=== PATIENT | female | born 1940 | race Caucasian/White ===

== ENCOUNTER → 2020-11-07 | Outpatient (CLI) | payer OTHER | LOC: RAH 11:29 | PROVIDERS: ATTEND Internal Medicine Cardiovascular Disease | DX: Z13.6 Encounter for screening for cardiovascular disorders (principal) | CPT/HCPCS: 75571 ==

== ENCOUNTER 2021-05-31 05:52 | Day surgery (SDC) | payer MEDICARE ==
[2021-05-29 13:12] LABS: BASOPHILS % (AUTO) 0.9 % (0.0-5.0); EOSINOPHILS % (AUTO) 3.4 % (0.0-8.0); HEMATOCRIT 35.7 % (36-48); LYMPHOCYTES % (AUTO) 32.5 % (21.0-51.0); MEAN CORPUSCULAR HEMOGLOBIN 30.1 pg (27.0-33.0); MEAN CORPUSCULAR HGB CONC 32.2 g/dL (32.0-36.0); MEAN CORPUSCULAR VOLUME 93.5 fL (79-99); MONOCYTES % (AUTO) 9.2 % (3.0-13.0); NEUTROPHILS % (AUTO) 53.6 % (40.0-77.0); PLATELET COUNT (AUTO) 162 K/uL (130-400); RED BLOOD CELL COUNT(AUTO) 3.82 MIL/uL (4.00-5.50); RED CELL DISTRIBUTION WIDTH 13.2 % (11.0-15.5); WHITE BLOOD COUNT (AUTO) 7.9 K/uL (4.8-10.8)
[2021-05-29 13:21] LABS: CREATININE 1.2 mg/dL (0.5-1.5)
[2021-05-29 13:24] LABS: INR 1.01 (0.85-1.15)
[2021-05-29 13:26] LABS: PARTIAL THROMBOPLASTIN TIME 28.2 SEC (26.3-35.5)
[2021-05-29 13:36] LABS: APPEARANCE,URINE Clear (CLEAR); BILIRUBIN,URINE Negative (NEGATIVE); COLOR,URINE Yellow (YELLOW); GLUCOSE, URINE (UA) Negative (NEGATIVE); KETONES,URINE Negative (NEGATIVE); LEUKOCYTE ESTERASE ,URINE Moderate (NEGATIVE); NITRATE,URINE Negative (NEGATIVE); OCCULT BLOOD,URINE Negative (NEGATIVE); PROTEIN,URINE Negative (NEGATIVE); UROBILINOGEN,URINE 0.2 mg/dL (0.2-1.0)
[2021-05-29 13:49] LABS: BACTERIA,URINE Moderate /HPF (None Seen); RBC,URINE 0-1 /HPF (0-1); SQUAMOUS EPITHELIAL CELL,UR Rare /HPF (0-2)
[2021-05-30 09:24] VITALS: BP 210/99
[2021-05-31] VITALS (10 sets, daily range): BP systolic 131–169; BP diastolic 55–88
[~2021-05-31] VITALS: Ht 165.1 cm; Wt 67.1 kg
[~2021-05-31 05:52] MED LIST: ASPI-1197 PO; ATOR40TA69 PO; CARV12.511 PO; MULT-1192 PO
[2021-05-31] MEDS ORDERED: 0.9% NACL 500ML IV.SOLN 500 ML IV SCH (06:00)
[2021-05-31] MEDS ORDERED: 0.9%NACL 1000ML 1,000 ML IV ONE (07:15)
[2021-05-31] MEDS ORDERED: SODIUM BICARB 50MEQ 50ML VIAL 50 ML ONE (09:07)
[2021-05-31] MEDS ORDERED: NITROGLYCERIN 2 MG VIAL IV ONE (09:07)
[2021-05-31] MEDS ORDERED: IOHEXOL 350 MG/ML 100ML INFUS..BTL IV ONE (09:07)
[2021-05-31] MEDS ORDERED: HEPARIN 10,000 UNIT/10ML (1,000 UNIT/ML) VIAL ONE (09:07)
[2021-05-31] MEDS ORDERED: LIDOCAINE HCL 400MG/20ML VIAL ONE (09:08)
[2021-05-31] MEDS ORDERED: MIDAZOLAM HCL 1 MG/ML 2ML VIAL ONE (09:08)
[2021-05-31] MEDS ORDERED: MEPERIDINE-PF 25 MG/ML SYG ONE (09:08)
[2021-05-31] MEDS ORDERED: LABETALOL 20MG VIAL IV ONE (09:40)
[2021-05-31] MEDS ORDERED: 0.9%NACL 1000ML 1,000 ML IV SCH (10:30)
== END 2021-05-31 15:10 | disposition home or self-care (01) ==
LOC: DAH 05:52
PROVIDERS: ATTEND Internal Medicine Cardiovascular Disease
DX: I25.119 Atherosclerotic heart disease of native coronary artery with unspecified angina pectoris (principal); I65.23 Occlusion and stenosis of bilateral carotid arteries; I70.1 Atherosclerosis of renal artery; I10 Essential (primary) hypertension; Z82.49 Family history of ischemic heart disease and other diseases of the circulatory system; Z85.6 Personal history of leukemia; Z79.899 Other long term (current) drug therapy
CPT/HCPCS: 36223; 36252; 36415; 71045; 80048; 81001; 85025; 85610; 85730; 87077 ×2; 87088; 87186 ×2; 93005; 93458; A4215; A4216; A4221; A4222; A4223 ×3; A4606; A4663; C1760; C1769; C1894; J1644; J2175; J2250; J3490 ×4; J7030; Q9965 ×2; Q9967; 99156; 99157

== ENCOUNTER 2021-07-25 08:00 | Inpatient (IN) | payer MEDICARE ==
[~2021-07-25] VITALS: Ht 165.1 cm; Wt 68.2 kg
[~2021-07-25 08:00] MED LIST changes: -ATOR40TA69 PO; -CARV12.511 PO
[2021-07-25 09:35] LABS: BASOPHILS % (AUTO) 0.9 % (0.0-5.0); EOSINOPHILS % (AUTO) 1.9 % (0.0-8.0); HEMATOCRIT 36.5 % (36-48); LYMPHOCYTES % (AUTO) 35.1 % (21.0-51.0); MEAN CORPUSCULAR HEMOGLOBIN 29.8 pg (27.0-33.0); MEAN CORPUSCULAR HGB CONC 31.8 g/dL (32.0-36.0); MEAN CORPUSCULAR VOLUME 93.8 fL (79-99); MONOCYTES % (AUTO) 9.3 % (3.0-13.0); NEUTROPHILS % (AUTO) 52.6 % (40.0-77.0); PLATELET COUNT (AUTO) 139 K/uL (130-400); RED BLOOD CELL COUNT(AUTO) 3.89 MIL/uL (4.00-5.50); RED CELL DISTRIBUTION WIDTH 13.9 % (11.0-15.5); WHITE BLOOD COUNT (AUTO) 6.3 K/uL (4.8-10.8)
[2021-07-25 09:43] LABS: CREATININE 1.2 mg/dL (0.5-1.5); POTASSIUM 4.7 mmol/L (3.5-5.1)
[2021-07-25 09:46] LABS: INR 1.01 (0.85-1.15)
[2021-07-25 09:47] LABS: PARTIAL THROMBOPLASTIN TIME 28.8 SEC (26.3-35.5)
[2021-07-25 10:14] LABS: APPEARANCE,URINE CLOUDY (CLEAR); BILIRUBIN,URINE NEGATIVE (NEGATIVE); COLOR,URINE YELLOW (YELLOW); GLUCOSE, URINE (UA) NEGATIVE (NEGATIVE); KETONES,URINE NEGATIVE (NEGATIVE); LEUKOCYTE ESTERASE ,URINE LARGE (NEGATIVE); NITRATE,URINE NEGATIVE (NEGATIVE); OCCULT BLOOD,URINE MODERATE (NEGATIVE); PROTEIN,URINE NEGATIVE (NEGATIVE); UROBILINOGEN,URINE 0.2 mg/dL (0.2-1.0)
[2021-07-25 10:21] LABS: BACTERIA,URINE Many /HPF (None Seen); RBC,URINE 0-1 /HPF (0-1); SQUAMOUS EPITHELIAL CELL,UR Few /HPF (0-2); WBC,URINE 26-50 /HPF (0-1)
[2021-07-26 13:30] VITALS: BP 159/77
[2021-07-26] MEDS ORDERED: CARV12.511 PO (14:36)
[2021-07-26] MEDS ORDERED: ATOR10 PO (14:36)
[2021-07-27] VITALS (38 sets, daily range): BP systolic 94–164; BP diastolic 42–79
[2021-07-27] MEDS ORDERED: LACTATED RINGERS 1000ML 0 ML IV ONE (05:35)
[2021-07-27] MEDS ORDERED: 0.9%NACL 1000ML 1,000 ML IV ONE (06:28)
[2021-07-27] MEDS ORDERED: NITROGLYCERIN 50MG VIAL IV ONE (06:54)
[2021-07-27] MEDS ORDERED: HEPARIN 10,000 UNIT/10ML (1,000 UNIT/ML) VIAL ONE (06:54)
[2021-07-27] MEDS ORDERED: IODIXANOL 320 MG/ML 100 ML VIAL ONE (06:54)
[2021-07-27] MEDS ORDERED: LEVOFLOXACIN 500 MG/D5W 100 ML 100 ML ONE (06:58)
[2021-07-27] MEDS ORDERED: ONDANSETRON 4MG INJ ONE (07:04)
[2021-07-27] MEDS ORDERED: DEXAMETHASONE SOD PHOSPHATE 10MG/ML 1ML VIAL ONE (07:04)
[2021-07-27] MEDS ORDERED: GLYCOPYRROLATE 1 MG/5 ML SYRINGE ONE (07:04)
[2021-07-27] MEDS ORDERED: LIDOCAINE PF 100MG/5ML (2%) SYRINGE 5ML ONE (07:04)
[2021-07-27] MEDS ORDERED: SUCCINYLCHOLINE 200MG/10ML SYR ONE (07:04)
[2021-07-27] MEDS ORDERED: FENTANYL CITRATE PF 50 MCG/1 ML 2ML VIAL ONE (07:05)
[2021-07-27] MEDS ORDERED: ROCURONIUM 10MG/1ML SYR 10 MG/ML ML ONE (07:05)
[2021-07-27] MEDS ORDERED: PROPOFOL 10 MG/ML 20ML VIAL IV ONE ×2 (07:05→07:09)
[2021-07-27] MEDS ORDERED: CEFAZOLIN SODIUM 1 GM VIAL ONE ×3 (07:05→08:05)
[2021-07-27] MEDS ORDERED: NEOSTIGMINE 5MG/5ML SYR IV ONE (07:05)
[2021-07-27] MEDS ORDERED: CLOPIDOGREL 300MG TAB ONE (07:15)
[2021-07-27] MEDS ORDERED: EPHEDRINE SULFATE 50 MG/ML AMPULE ONE (07:49)
[2021-07-27] MEDS ORDERED: 0.9%NACL 1000ML 1,000 ML IV SCH ×2 (08:00→09:30)
[2021-07-27] MEDS ORDERED: ROCURONIUM BROMIDE 10MG/1ML 5ML VL ONE (08:03)
[2021-07-27] MEDS ORDERED: OCTYL 2-CYANOACRYLATE 1 EACH TP ONE (08:56)
[2021-07-27] MEDS ORDERED: ACETAMINOPHEN WITH CODEINE 1 TAB TAB PO PRN ×2 (09:30)
[2021-07-27] MEDS ORDERED: NITROGLYCERIN 50MG/D5W 250ML 1 BOT IV PRN (09:30)
[2021-07-27] MEDS ORDERED: TEMAZEPAM 30 MG CAP PO PRN (09:30)
[2021-07-27] MEDS ORDERED: ONDANSETRON 4MG INJ IVP PRN (09:30)
[2021-07-27] MEDS: MULTIVITAMIN TABLET PO SCH (10:01)
[2021-07-27] MEDS ORDERED: ASPIRIN 81MG CHEW TAB PO SCH (10:01)
[2021-07-27] MEDS ORDERED: CLOPIDOGREL 300MG TAB PO SCH (10:30)
[2021-07-27] MEDS ORDERED: BENZOCAINE/MENTH/CETYLPYRD CL 1 EACH LOZENGE MM PRN (15:30)
[2021-07-27] MEDS: NOREPINEPHRIN 4MG/NS 250ML 250 ML IV SCH (18:14)
[2021-07-27] MEDS: ATORVASTATIN 10 MG TABLET PO SCH (20:12)
[2021-07-27] MEDS: CARVEDILOL 12.5 MG TABLET PO SCH (20:12)
[2021-07-28] VITALS (72 sets, daily range): BP systolic 115–166; BP diastolic 27–108
[2021-07-28 04:16] LABS: HEMATOCRIT 27.9 % (36-48); MEAN CORPUSCULAR HEMOGLOBIN 29.8 pg (27.0-33.0); MEAN CORPUSCULAR HGB CONC 31.5 g/dL (32.0-36.0); MEAN CORPUSCULAR VOLUME 94.6 fL (79-99); RED BLOOD CELL COUNT(AUTO) 2.95 MIL/uL (4.00-5.50)
[2021-07-28 04:35] LABS: CREATININE 1.4 mg/dL (0.5-1.5); POTASSIUM 4.5 mmol/L (3.5-5.1)
[2021-07-28] MEDS ORDERED: LEVOFLOXACIN 500 MG/D5W 100 ML 100 ML ONE (05:11)
[2021-07-28] MEDS ORDERED: LEVOFLOXACIN 500 MG/D5W 100 ML 100 ML IV SCH (07:00)
[2021-07-28] MEDS: CARVEDILOL 12.5 MG TABLET PO SCH (08:25)
[2021-07-28] MEDS: MULTIVITAMIN TABLET PO SCH (08:35)
[2021-07-28] MEDS: ASPIRIN 81MG CHEW TAB PO SCH (08:35)
[2021-07-28] MEDS: CLOPIDOGREL 75MG TAB PO SCH (08:36)
[2021-07-28] MEDS: NOREPINEPHRIN 4MG/NS 250ML 250 ML IV SCH (11:02)
[2021-07-28 16:01] LABS: HEMATOCRIT 23.5 % (36-48)
[2021-07-28 20:56] LABS: HEMATOCRIT 25.6 % (36-48)
[2021-07-28] MEDS: ATORVASTATIN 10 MG TABLET PO SCH (21:24)
[2021-07-29] VITALS (30 sets, daily range): BP systolic 113–159; BP diastolic 53–91
[2021-07-29 03:41] LABS: BASOPHILS % (AUTO) 0.1 % (0.0-5.0); EOSINOPHILS % (AUTO) 1.3 % (0.0-8.0); HEMATOCRIT 22.4 % (36-48); LYMPHOCYTES % (AUTO) 27.8 % (21.0-51.0); MEAN CORPUSCULAR HGB CONC 32.1 g/dL (32.0-36.0); MEAN CORPUSCULAR VOLUME 93.3 fL (79-99); NEUTROPHILS % (AUTO) 58.5 % (40.0-77.0); PLATELET COUNT (AUTO) 116 K/uL (130-400); RED CELL DISTRIBUTION WIDTH 14.7 % (11.0-15.5); WHITE BLOOD COUNT (AUTO) 11.8 K/uL (4.8-10.8)
[2021-07-29 07:59] LABS: CREATININE 1.3 mg/dL (0.5-1.5); POTASSIUM 4.1 mmol/L (3.5-5.1)
[2021-07-29] MEDS: LEVOFLOXACIN 250 MG/D5W 50ML 50 ML IVPB SCH (08:00)
[2021-07-29] MEDS: ASPIRIN 81MG CHEW TAB PO SCH (08:23)
[2021-07-29] MEDS: MULTIVITAMIN TABLET PO SCH (08:24)
[2021-07-29] MEDS: CLOPIDOGREL 75MG TAB PO SCH (08:24)
[2021-07-29 12:32] LABS: HEMATOCRIT 23.7 % (36-48)
[2021-07-29] MEDS: ATORVASTATIN 10 MG TABLET PO SCH (20:23)
[2021-07-30] VITALS (13 sets, daily range): BP systolic 135–168; BP diastolic 48–95
[2021-07-30 03:38] LABS: HEMATOCRIT 23.1 % (36-48); MEAN CORPUSCULAR HEMOGLOBIN 29.8 pg (27.0-33.0); MEAN CORPUSCULAR HGB CONC 31.6 g/dL (32.0-36.0); MEAN CORPUSCULAR VOLUME 94.3 fL (79-99); RED BLOOD CELL COUNT(AUTO) 2.45 MIL/uL (4.00-5.50); RED CELL DISTRIBUTION WIDTH 14.7 % (11.0-15.5); WHITE BLOOD COUNT (AUTO) 11.9 K/uL (4.8-10.8)
[2021-07-30] MEDS: MULTIVITAMIN TABLET PO SCH (08:13)
[2021-07-30] MEDS: ASPIRIN 81MG CHEW TAB PO SCH (08:13)
[2021-07-30] MEDS: LEVOFLOXACIN 250 MG/D5W 50ML 50 ML IVPB SCH (08:13)
[2021-07-30] MEDS: CLOPIDOGREL 75MG TAB PO SCH (08:30)
[2021-07-30] MEDS ORDERED: METOPROLOL TARTRATE 50 MG TAB PO SCH (10:30)
[2021-07-30] MEDS: PANTOPRAZOLE 40 MG TAB DR PO SCH (10:39)
[2021-07-30] MEDS: METOPROLOL SUCCINATE 50 MG TAB.SR.24H PO SCH ×2 (11:40→20:48)
[2021-07-30 12:23] LABS: APPEARANCE,URINE Clear (CLEAR); BILIRUBIN,URINE Negative (NEGATIVE); COLOR,URINE Yellow (YELLOW); GLUCOSE, URINE (UA) Negative (NEGATIVE); KETONES,URINE Trace mg/dL (NEGATIVE); LEUKOCYTE ESTERASE ,URINE Moderate (NEGATIVE); NITRATE,URINE Negative (NEGATIVE); OCCULT BLOOD,URINE Negative (NEGATIVE); PROTEIN,URINE Trace mg/dL (NEGATIVE)
[2021-07-30 13:04] LABS: BACTERIA,URINE Rare /HPF (None Seen); RBC,URINE 0-1 /HPF (0-1); SQUAMOUS EPITHELIAL CELL,UR Few /HPF (0-2)
[2021-07-30] MEDS: ATORVASTATIN 10 MG TABLET PO SCH (20:47)
[2021-07-31] VITALS (7 sets, daily range): BP systolic 117–161; BP diastolic 47–80
[2021-07-31 03:59] LABS: HEMATOCRIT 26.7 % (36-48)
[2021-07-31] MEDS ORDERED: DILTIAZEM 50MG VIAL IV ONE (05:38)
[2021-07-31] MEDS ORDERED: DILTIAZEM 25MG INJ IVP SCH ×2 (06:00→08:00)
[2021-07-31] MEDS: PANTOPRAZOLE 40 MG TAB DR PO SCH ×2 (06:20→08:42)
[2021-07-31] MEDS: METOPROLOL SUCCINATE 50 MG TAB.SR.24H PO SCH ×2 (06:20→20:31)
[2021-07-31 06:41] LABS: BASOPHILS % (AUTO) 0.4 % (0.0-5.0); EOSINOPHILS % (AUTO) 0.1 % (0.0-8.0); LYMPHOCYTES % (AUTO) 31.7 % (21.0-51.0); MEAN CORPUSCULAR HEMOGLOBIN 29.4 pg (27.0-33.0); MEAN CORPUSCULAR HGB CONC 32.1 g/dL (32.0-36.0); MEAN CORPUSCULAR VOLUME 91.6 fL (79-99); MONOCYTES % (AUTO) 11.8 % (3.0-13.0); NEUTROPHILS % (AUTO) 55.7 % (40.0-77.0); PLATELET COUNT (AUTO) 123 K/uL (130-400); RED BLOOD CELL COUNT(AUTO) 2.96 MIL/uL (4.00-5.50); WHITE BLOOD COUNT (AUTO) 9.3 K/uL (4.8-10.8)
[2021-07-31] MEDS ORDERED: METOPROLOL TARTRATE 50 MG TAB PO SCH (08:00)
[2021-07-31 08:26] LABS: ALBUMIN 3.2 g/dL (3.5-5.0); MAGNESIUM 1.9 mg/dL (1.80-2.40); POTASSIUM 4.2 mmol/L (3.5-5.1); TOTAL PROTEIN, SERUM 6.3 g/dL (6.0-8.3)
[2021-07-31] MEDS: MULTIVITAMIN TABLET PO SCH (08:42)
[2021-07-31] MEDS: CLOPIDOGREL 75MG TAB PO SCH (08:43)
[2021-07-31] MEDS: DILTIAZEM 125 MG/25 ML INJ 125 MG in 0.9%NACL 100ML 100 ML IV SCH ×3 (09:09→20:38)
[2021-07-31] MEDS: LEVOFLOXACIN 250 MG/D5W 50ML 50 ML IVPB SCH (09:30)
[2021-07-31] MEDS: APIXABAN 5 MG TABLET PO SCH ×2 (10:40→20:31)
[2021-07-31] MEDS: FERROUS SULFATE 325 MG TABLET.DR PO SCH ×2 (11:32→17:08)
[2021-07-31] MEDS: ATORVASTATIN 10 MG TABLET PO SCH (20:32)
[2021-08-01 03:43] VITALS: BP 145/81
[2021-08-01 05:14] LABS: HEMATOCRIT 27.5 % (36-48); MEAN CORPUSCULAR HEMOGLOBIN 29.5 pg (27.0-33.0); MEAN CORPUSCULAR HGB CONC 32.4 g/dL (32.0-36.0); MEAN CORPUSCULAR VOLUME 91.1 fL (79-99); RED BLOOD CELL COUNT(AUTO) 3.02 MIL/uL (4.00-5.50); RED CELL DISTRIBUTION WIDTH 15.5 % (11.0-15.5); WHITE BLOOD COUNT (AUTO) 8.5 K/uL (4.8-10.8)
[2021-08-01] MEDS ORDERED: MAGNESIUM 2GM PREMIX 50ML 50 ML IV SCH (07:00)
[2021-08-01] MEDS ORDERED: PHARMACY COMMUNICATION MISC SCH (07:30)
[2021-08-01 08:00] VITALS: BP 131/96
[2021-08-01] MEDS: APIXABAN 5 MG TABLET PO SCH ×2 (08:23→19:55)
[2021-08-01] MEDS: FERROUS SULFATE 325 MG TABLET.DR PO SCH ×3 (08:24→16:35)
[2021-08-01] MEDS: MULTIVITAMIN TABLET PO SCH (08:24)
[2021-08-01] MEDS: CLOPIDOGREL 75MG TAB PO SCH (08:24)
[2021-08-01] MEDS: METOPROLOL SUCCINATE 50 MG TAB.SR.24H PO SCH ×2 (08:24→19:55)
[2021-08-01] MEDS: AMIODARONE 200 MG TABLET PO SCH (08:24)
[2021-08-01] MEDS: LEVOFLOXACIN 250 MG/D5W 50ML 50 ML IVPB SCH (08:25)
[2021-08-01] MEDS: WATER IV SCH ×2 (08:26→08:27)
[2021-08-01] MEDS: AMIODARONE IV SCH ×2 (08:26→08:27)
[2021-08-01] MEDS: DEXTROSE 5% IV SCH ×2 (08:26→08:27)
[2021-08-01 12:00] VITALS: BP 138/72
[2021-08-01] MEDS: DILTIAZEM 60MG TAB PO SCH ×2 (12:44→17:34)
[2021-08-01 16:00] VITALS: BP 119/71
[2021-08-01] MEDS: DILTIAZEM 125 MG/25 ML INJ 125 MG in 0.9%NACL 100ML 100 ML IV SCH (17:33)
[2021-08-01 19:00] VITALS: BP 131/82
[2021-08-01] MEDS: ATORVASTATIN 10 MG TABLET PO SCH (19:55)
[2021-08-02] VITALS: BP 135/70
[2021-08-02] MEDS: DILTIAZEM 60MG TAB PO SCH ×3 (00:01→11:39)
[2021-08-02 04:00] VITALS: BP 130/60
[2021-08-02 04:43] LABS: HEMATOCRIT 28.3 % (36-48); MEAN CORPUSCULAR HEMOGLOBIN 29.1 pg (27.0-33.0); MEAN CORPUSCULAR HGB CONC 32.2 g/dL (32.0-36.0); MEAN CORPUSCULAR VOLUME 90.4 fL (79-99); RED BLOOD CELL COUNT(AUTO) 3.13 MIL/uL (4.00-5.50); RED CELL DISTRIBUTION WIDTH 14.9 % (11.0-15.5); WHITE BLOOD COUNT (AUTO) 10.5 K/uL (4.8-10.8)
[2021-08-02 04:59] LABS: MAGNESIUM 1.6 mg/dL (1.80-2.40); POTASSIUM 3.6 mmol/L (3.5-5.1)
[2021-08-02] MEDS ORDERED: KCL 20 MEQ ERTAB PO ONE ×2 (05:30→05:35)
[2021-08-02] MEDS: AMIODARONE IV SCH ×2 (07:14)
[2021-08-02] MEDS: DEXTROSE 5% IV SCH ×2 (07:14)
[2021-08-02] MEDS: WATER IV SCH ×2 (07:14)
[2021-08-02] MEDS: PANTOPRAZOLE 40 MG TAB DR PO SCH (07:18)
[2021-08-02] MEDS: METOPROLOL SUCCINATE 50 MG TAB.SR.24H PO SCH (07:18)
[2021-08-02] MEDS: FERROUS SULFATE 325 MG TABLET.DR PO SCH ×2 (07:18→11:39)
[2021-08-02] MEDS: MULTIVITAMIN TABLET PO SCH (07:18)
[2021-08-02] MEDS: APIXABAN 5 MG TABLET PO SCH (07:18)
[2021-08-02] MEDS: CLOPIDOGREL 75MG TAB PO SCH (07:18)
[2021-08-02] MEDS: AMIODARONE 200 MG TABLET PO SCH (07:18)
[2021-08-02 08:31] VITALS: BP 129/78
[2021-08-02 11:35] VITALS: BP 117/84
[2021-08-02] MEDS ORDERED: APIX5TAB PO (13:03)
[2021-08-02] MEDS ORDERED: AMIO200T44 PO (13:03)
[2021-08-02] MEDS ORDERED: METO-409 PO (13:03)
[2021-08-02] MEDS ORDERED: DILT240C93 PO (13:03)
[2021-08-02] MEDS ORDERED: CLOP75TA14 PO (13:03)
[2021-08-02] MEDS ORDERED: PANT40TA PO (13:03)
[2021-10-09] MEDS ORDERED: AEC81 PO (12:38)
== END 2021-08-02 14:30 | disposition home or self-care (01) | DRG 35 ==
LOC: EDSTATUS 08:00 → DAHIP 07-27 05:35 → 2CH 07-27 09:42 → 4BH 07-30 16:04 → 4CH 07-31 18:58
PROVIDERS: ADMIT Internal Medicine; ATTEND Internal Medicine
PROC: B3171ZZ Fluoroscopy of Left Internal Carotid Artery using Low Osmolar Contrast (ICD-10-PCS; 2021-07-27)
PROC: 037L3DZ Dilation of Left Internal Carotid Artery with Intraluminal Device, Percutaneous Approach (ICD-10-PCS; principal; 2021-07-27 08:08)
PROC: 30233N1 Transfusion of Nonautologous Red Blood Cells into Peripheral Vein, Percutaneous Approach (ICD-10-PCS; 2021-07-30)
DX: I65.23 Occlusion and stenosis of bilateral carotid arteries (principal); N39.0 Urinary tract infection, site not specified; Z94.84 Stem cells transplant status; D68.69 Other thrombophilia; D62 Acute posthemorrhagic anemia; I13.0 Hypertensive heart and chronic kidney disease with heart failure and stage 1 through stage 4 chronic kidney disease, or unspecified chronic kidney disease; I50.32 Chronic diastolic (congestive) heart failure; B96.20 Unspecified Escherichia coli [E. coli] as the cause of diseases classified elsewhere; E78.5 Hyperlipidemia, unspecified; I25.10 Atherosclerotic heart disease of native coronary artery without angina pectoris; I48.0 Paroxysmal atrial fibrillation; Z20.822 Contact with and (suspected) exposure to COVID-19; D69.6 Thrombocytopenia, unspecified; N18.31 Chronic kidney disease, stage 3a; I70.1 Atherosclerosis of renal artery; B96.4 Proteus (mirabilis) (morganii) as the cause of diseases classified elsewhere; J84.10 Pulmonary fibrosis, unspecified; Z79.01 Long term (current) use of anticoagulants; Z79.02 Long term (current) use of antithrombotics/antiplatelets; Z82.49 Family history of ischemic heart disease and other diseases of the circulatory system
CPT/HCPCS: 36415; 37215; 37232; 71045; 74150; 74176; 80048; 80053; 80061; 81001; 82270; 83735; 84145; 85014; 85018; 85025; 85027; 85347; 85610; 85730; 86850; 86900; 86901; 86923; 87077; 87088; 87186; 87635; 93005; A4606; C1725; G0378; J0282; J0330; J0690; J1100; J1644; J1956; J2001; J2405; J2704; J2710; J3010; J3475; J3490; J7030; J7040; J7060; J7120; P9016; Q9967

== ENCOUNTER 2021-11-23 07:11 | Day surgery (SDC) | payer MEDICARE ==
[2021-11-21 11:56] LABS: BASOPHILS % (AUTO) 1.1 % (0.0-5.0); EOSINOPHILS % (AUTO) 1.7 % (0.0-8.0); HEMATOCRIT 34.3 % (36-48); LYMPHOCYTES % (AUTO) 34.8 % (21.0-51.0); MEAN CORPUSCULAR HEMOGLOBIN 30.2 pg (27.0-33.0); MEAN CORPUSCULAR HGB CONC 33.5 g/dL (32.0-36.0); MONOCYTES % (AUTO) 10.1 % (3.0-13.0); NEUTROPHILS % (AUTO) 51.9 % (40.0-77.0); PLATELET COUNT (AUTO) 159 K/uL (130-400); RED BLOOD CELL COUNT(AUTO) 3.81 MIL/uL (4.00-5.50); RED CELL DISTRIBUTION WIDTH 14.6 % (11.0-15.5); WHITE BLOOD COUNT (AUTO) 7.1 K/uL (4.8-10.8)
[2021-11-21 12:05] LABS: CREATININE 1.4 mg/dL (0.5-1.5); POTASSIUM 4.7 mmol/L (3.5-5.1)
[2021-11-21 12:07] LABS: INR 1.08 (0.85-1.15); PROTHROMBIN TIME 11.7 SEC (9.6-11.6)
[2021-11-21 12:09] LABS: PARTIAL THROMBOPLASTIN TIME 31.9 SEC (26.3-35.5)
[2021-11-22 09:58] VITALS: BP 136/59
[2021-11-23] VITALS (16 sets, daily range): BP systolic 93–168; BP diastolic 49–89
[~2021-11-23] VITALS: Ht 167.6 cm; Wt 66.6 kg
[~2021-11-23 07:11] MED LIST changes: +AEC81 PO; +APIX5TAB PO; -ASPI-1197 PO; +ATOR10 PO; +DILT240C94 PO; +METO-409 PO; +PANT40TA54 PO
[2021-11-23] MEDS ORDERED: 0.9%NACL 1000ML 1,000 ML IV ONE (07:25)
[2021-11-23] MEDS ORDERED: LIDOCAINE HCL 2% VISCOUS 15 ML UDCUP ONE (08:27)
[2021-11-23] MEDS ORDERED: FLUMAZENIL 0.1MG/1ML 5ML VIAL IV ONE (08:28)
[2021-11-23] MEDS ORDERED: NALOXONE HCL 0.4 MG/1 ML ML ONE (08:28)
[2021-11-23] MEDS ORDERED: FENTANYL CITRATE PF 50 MCG/1 ML 2ML VIAL ONE (11:30)
[2021-11-23] MEDS ORDERED: MIDAZOLAM HCL 1 MG/ML 2ML VIAL ONE ×2 (11:30→12:11)
[2021-11-23] MEDS ORDERED: PROPOFOL 10 MG/ML 20ML VIAL IV ONE (12:15)
[2021-11-23] MEDS ORDERED: DEXTROSE 5% IV SCH (13:00)
[2021-11-23] MEDS ORDERED: AMIODARONE IV SCH (13:00)
[2021-11-23] MEDS ORDERED: WATER IV SCH (13:00)
[2021-11-23] MEDS ORDERED: APIXABAN 5 MG TABLET PO SCH (13:30)
[2021-11-23] MEDS ORDERED: AMIODARONE 200 MG TABLET PO SCH (13:30)
== END 2021-11-23 14:45 | disposition home or self-care (01) ==
LOC: DAH 07:11
PROVIDERS: ATTEND Internal Medicine Cardiovascular Disease
DX: I48.19 Other persistent atrial fibrillation (principal); I08.1 Rheumatic disorders of both mitral and tricuspid valves; I25.10 Atherosclerotic heart disease of native coronary artery without angina pectoris; I10 Essential (primary) hypertension; E78.5 Hyperlipidemia, unspecified; Z98.890 Other specified postprocedural states; Z82.49 Family history of ischemic heart disease and other diseases of the circulatory system; Z85.6 Personal history of leukemia; Z79.82 Long term (current) use of aspirin; Z79.01 Long term (current) use of anticoagulants; Z79.899 Other long term (current) drug therapy
CPT/HCPCS: 36415; 80048; 85025; 85610; 85730; 92960; 93005 ×2; 93312; 93325; A4215; A4216; A4221; A4222; A4223 ×3; A4606; A4615; A4657; A4663; J0282; J2250 ×2; J2704; J3010; J7030; J7060; 99152; J2310; J3490

== ENCOUNTER → 2023-01-21 | Outpatient (CLI) | payer MEDICARE | END | disposition home or self-care (01) | LOC: SHCH 09:39 | PROVIDERS: ATTEND Internal Medicine Cardiovascular Disease | DX: I65.23 Occlusion and stenosis of bilateral carotid arteries (principal); R09.89 Other specified symptoms and signs involving the circulatory and respiratory systems; Z95.828 Presence of other vascular implants and grafts | CPT/HCPCS: 93880 ==

== ENCOUNTER → 2023-06-19 | Outpatient (CLI) | payer MEDICARE ==
[~2023-06-19] MED LIST changes: +DILT240C81 PO; -DILT240C94 PO
== END | disposition home or self-care (01) ==
LOC: SHCH 14:24
PROVIDERS: ATTEND Internal Medicine Cardiovascular Disease
DX: I65.21 Occlusion and stenosis of right carotid artery (principal); Z95.828 Presence of other vascular implants and grafts
CPT/HCPCS: 93880

== ENCOUNTER → 2024-04-12 | Outpatient (CLI) | payer MEDICARE ==
[~2024-04-12] MED LIST changes: +DILT120C89 PO; +FURO20TA6 PO; +LEVO250T75 PO; -PANT40TA54 PO
== END | disposition home or self-care (01) ==
LOC: SHCH 12:52
PROVIDERS: ATTEND Surgery
DX: R60.9 Edema, unspecified (principal)
CPT/HCPCS: 93970